=== PATIENT | male | born 1990 | race Caucasian/White ===

== ENCOUNTER 2017-08-21 17:11 | Emergency (ER) | payer OTHER ==
[~2017-08-21] VITALS: Ht 172.7 cm; Wt 104.5 kg
[2017-08-21] MEDS ORDERED: CEPH-571 PO (18:23)
[2017-08-21 18:40] VITALS: BP 137/93
== END 2017-08-21 18:43 | disposition home or self-care (01) ==
LOC: ER 17:12
DX: S81.811A Laceration without foreign body, right lower leg, initial encounter (principal); W22.8XXA Striking against or struck by other objects, initial encounter; Y93.89 Activity, other specified; Y92.89 Other specified places as the place of occurrence of the external cause; Y99.8 Other external cause status
CPT/HCPCS: 12001; 99283; A6449

== ENCOUNTER 2017-08-31 09:12 | Emergency (ER) | payer OTHER ==
[~2017-08-31] VITALS: Ht 177.8 cm; Wt 105.0 kg
[~2017-08-31 09:12] MED LIST: CEPH-571 PO
[2017-08-31 09:24] VITALS: BP 112/67
[2017-08-31] MEDS ORDERED: TETanus/Pertussis (Acell)/Diphther VAC/PF (Tdap-Adult) 0.5ml syringe IM ONE (09:50)
== END 2017-08-31 10:04 | disposition home or self-care (01) ==
LOC: ER 09:13
DX: S81.811D Laceration without foreign body, right lower leg, subsequent encounter (principal); X58.XXXD Exposure to other specified factors, subsequent encounter
CPT/HCPCS: 90471; 90715; 99284